=== PATIENT | female | born 1940 | race Native Hawaiian/Other Pacific Islander ===

== ENCOUNTER 2018-01-21 07:56 | Day surgery (SDC) | payer OTHER ==
[2018-01-21 08:45] VITALS: BMI 19.9
[2018-01-21 09:07] LABS: HEMOGLOBIN 10.7 g/dL (11.0-16.0); MEAN CELL VOLUME 88.9 fL (81.0-99.0); MEAN CORPUSCULAR HEMOGLOBIN 30.4 pg (27.0-31.0); MEAN CORPUSCULAR HGB CONC 34.2 g/dL (33.0-37.0); MEAN PLATELET VOLUME 6.7 fL (7.2-11.7); RBC 3.53 Mil/uL (3.80-5.20); RED CELL DISTRIBUTION WIDTH 13.1 % (11.5-14.5); WHITE BLOOD COUNT 3.8 K/uL (4.8-10.8)
[2018-01-21 09:18] LABS: PROTHROMBIN TIME 11.4 SECONDS (9.7-12.2)
[2018-01-21 09:23] LABS: CALCIUM 9.5 mg/dl (8.6-10.4)
[2018-01-21] MEDS ORDERED: Labetalol 5mg/ml (4ml) ONE (09:45)
[2018-01-21] MEDS ORDERED: Midazolam 2 MG/2 ML VIAL ONE (09:49)
[2018-01-21] MEDS ORDERED: Iodixanol 320 MG/ML 100 ML BOTTLE IV ONE (10:34)
--- NOTE | 2018-01-23 18:47 | CARDCATH ---
PROCEDURE DATE: 01/21/2018 PROCEDURES: 1. Left heart catheterization. 2. Coronary angiogram. CLINICAL INDICATIONS: 1. Chest pain. 2. Abnormal stress test. 3. Hypertension. 4. Hyperlipidemia. 5. Diabetes. PERFORMING PHYSICIAN: Ross Park MD PROCEDURE FINDINGS: After informed consent, the patient was prepped and draped in the usual sterile fashion. A 2% lidocaine was given in the right groin for local anesthesia. Using micropuncture technique, a 6-Chadian sheath was introduced into the right common femoral artery. A 6-Chadian JR4 diagnostic catheter crossed into the left ventricle across the aortic valve. Contrast injected and left ventricle angiogram was done. EDP was measured. Then, the catheter was pulled back across the aortic valve. The gradient across the aortic valve was measured. Then, the same catheter engaged into the right coronary artery. Contrast injected and right coronary angiogram was done. Then, the catheter was exchanged to a 6-Chadian JL4 diagnostic catheter. The catheter engaged into the left main coronary artery. Contrast injected and left coronary angiogram was done. The patient tolerated the procedure well. Postprocedure Mynx closure device applied in the right groin with excellent hemostasis. Radiological supervision and radiological interpretation of the coronary imaging was done. FINDINGS: 1. Left main coronary artery is patent. 2. Mid LAD has 50% concentric narrowing. Proximal and distal LAD patent. Diagonal branches are patent. 3. Left circumflex has 50% narrowing in the proximal portion. Distal left circumflex and obtuse marginal branches are patent. 4. Right coronary artery is dominant and patent. Distal right coronary artery has some luminal irregularities. 5. LV ejection fraction is approximately 80%. No gradient across the aortic valve. EDP is 18. IMPRESSION: 1. Nonobstructive coronaries as described above. 2. Normal left ventricular systolic function. PLAN: Recommend medical management. Ross Park MD
== END 2018-01-21 13:30 | disposition home or self-care (01) ==
LOC: C.CATHLAB 07:56
PROVIDERS: ATTEND Internal Medicine Cardiovascular Disease
DX: R94.39 Abnormal result of other cardiovascular function study (principal); I10 Essential (primary) hypertension; E11.9 Type 2 diabetes mellitus without complications; E78.5 Hyperlipidemia, unspecified
CPT/HCPCS: 36415; 80048; 82948; 85027; 85610; 85730; 93458; 99152; 99153; C1760; C1766; C1769; C1887; J1644; J2250; J3010; Q9967